=== PATIENT | female | born 1995 | race American Indian/Alaskan Native ===

== ENCOUNTER 2018-10-24 14:43 | Emergency (ER) | payer SELFPAY ==
[2018-10-24 15:05] VITALS: BP 121/73
[2018-10-24] MEDS ORDERED: IBUPROFEN PO ONE (15:20)
[2018-10-24] MEDS ORDERED: NORCO 5/325 PO ONE (15:20)
[2018-10-24] MEDS ORDERED: ZOFRAN ODT PO ONE (15:20)
--- NOTE | 2018-10-24 15:28 | Emergency Department Report ---
ED Headache HPI - General Chief Complaint: Headache Stated Complaint: (L) SIDE PAIN Time Seen by Provider: 10/24/18 15:20 - History of Present Illness Initial Comments: Carly is a healthy 23 yo female who presents with 3 days of left frontal headache. Also has had cold symptoms nasal congestion cough. No fever. No ear pain. No vomiting. NO previous hx of headache. Has had hx of seizures. Has been ruled out for epilepsy. Goody's powder did not provided any relief. Timing/Duration: other (3 days) Quality: moderate Head Injury Location: frontal Recent Head Trauma: no recent headache/trauma Associated Symptoms: nasal congestion, nasal drainage. denies: confusion, fatigue, fever/chills, nausea/vomiting, seizures, stiff neck, vision changes Allergies/Adverse Reactions: Allergies No Known Allergies Allergy (Unverified 10/24/18 14:53) Home Medications: Ambulatory Orders Butalb/Acetamin/Caff 50-325-40 [Fioricet] 1 tab PO Q6HR PRN #10 tab 10/24/18 Loratadine 10 mg PO DAILY 14 Days #14 capsule 10/24/18 ED Review of Systems ROS: Stated complaint: (L) SIDE PAIN Other details as noted in HPI Comment: All other systems reviewed and negative Constitutional: denies: fever, malaise ENT: congestion. denies: ear pain, throat pain Respiratory: cough Cardiovascular: denies: chest pain ED Past Medical Hx - Past Medical History Previous Medical History?: No Hx Seizures: Yes (last 2014) - Surgical History Past Surgical History?: No - Social History Smoking Status: Never Smoker Substance Use Type: None - Medications Home Medications: Home Medications Medication Instructions Recorded Confirmed Last Taken Type Butalb/Acetamin/Caff 50-325-40 1 tab PO Q6HR PRN #10 tab 10/24/18 Unknown Rx [Fioricet] Loratadine 10 mg PO DAILY 14 Days #14 capsule 10/24/18 Unknown Rx ED Physical Exam - General Limitations: No Limitations General appearance: alert, in no apparent distress, other (smiling, and appears comfortable) - Head Head exam: Present: atraumatic, normocephalic - Eye Eye exam: Present: normal appearance - ENT ENT exam: Present: mucous membranes moist, TM's normal bilaterally, other (pulsatile facial tenderness in the frontal region left forehead region) - Neck Neck exam: Present: normal inspection, full ROM. Absent: tenderness, meningismus - Respiratory Respiratory exam: Present: normal lung sounds bilaterally. Absent: respiratory distress, wheezes, rales, rhonchi - Cardiovascular Cardiovascular Exam: Present: regular rate, normal rhythm, normal heart sounds. Absent: systolic murmur, diastolic murmur, rubs, gallop - GI/Abdominal GI/Abdominal exam: Present: soft, normal bowel sounds. Absent: distended, tenderness, guarding, rebound - Extremities Exam Extremities exam: Present: normal inspection - Back Exam Back exam: Present: normal inspection - Neurological Exam Neurological exam: Present: alert, oriented X3, CN II-XII intact, normal gait. Absent: motor sensory deficit - Psychiatric Psychiatric exam: Present: normal affect, normal mood - Skin Skin exam: Present: warm, dry, intact, normal color. Absent: rash ED Course Vital Signs 10/24/18 14:49 Temperature 98.5 F Pulse Rate 102 H Respiratory 18 Rate Blood Pressure 121/73 O2 Sat by Pulse 100 Oximetry ED Medical Decision Making - Medical Decision Making Clara is a healthy female who presents with 3 days of left-sided frontal hea dache suggestive of sinus headache with associated URI symptoms. She is currently neurologically intact without fever or vomiting. I do not suspect intracranial tumor or subarachnoid hemorrhage. I do not suspect meningitis. Prescribed Fioricet and loratadine. Critical care attestation.: If time is entered above; I have spent that time in minutes in the direct care of this critically ill patient, excluding procedure time. ED Disposition Clinical Impression: Sinus headache, URI (upper respiratory infection) Disposition: TO HOME OR SELFCARE Is pt being admited?: No Does the pt Need Aspirin: No Condition: Stable Instructions: Acute Headache (ED) Prescriptions: Butalb/Acetamin/Caff 50-325-40 [Fioricet] 1 tab PO Q6HR PRN #10 tab PRN Reason: Headache Loratadine 10 mg PO DAILY 14 Days #14 capsule Referrals: [facility] [Outside] - 3-5 Days
== END 2018-10-24 15:56 | disposition home or self-care (01) ==
LOC: ED 14:43
DX: J06.9 Acute upper respiratory infection, unspecified (principal); J01.90 Acute sinusitis, unspecified
CPT/HCPCS: 99282; Q0162

== ENCOUNTER 2021-03-24 03:44 | Emergency (ER) | payer OTHER ==
[2021-03-24] MEDS ORDERED: CYCLOBENZAPRINE 10 MG TAB PO ONE (04:37)
[2021-03-24] MEDS ORDERED: IBUPROFEN 600 MG TAB PO ONE (04:37)
[2021-03-24] MEDS ORDERED: ACETAMINOPHEN 325 MG TAB PO ONE (04:37)
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
--- NOTE | 2021-03-24 05:26 | XRay Report ---
Lumbar spine 2 views INDICATION: Low back pain IMPRESSION: No fracture or subluxation is identified. Signer Name: Cecil Deal MD Signed: 03/24/2021 5:22 AM Workstation Name: [id number]
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
[2021-03-24 06:30] VITALS: BP 113/78
== END 2021-03-24 06:31 | disposition home or self-care (01) ==
LOC: ED 03:44
DX: S29.012A Strain of muscle and tendon of back wall of thorax, initial encounter (principal); M62.830 Muscle spasm of back; M54.5 Low back pain; M62.838 Other muscle spasm; M54.2 Cervicalgia; G44.309 Post-traumatic headache, unspecified, not intractable; Z86.69 Personal history of other diseases of the nervous system and sense organs; V89.2XXA Person injured in unspecified motor-vehicle accident, traffic, initial encounter; Y93.89 Activity, other specified; Y92.488 Other paved roadways as the place of occurrence of the external cause; Y99.8 Other external cause status
CPT/HCPCS: 70450; 72070; 72100; 72125; 99284